=== PATIENT | male | born 1960 | race African-American/Black ===

== ENCOUNTER 2019-01-14 09:16 | Emergency (ER) | payer OTHER ==
[2019-01-14 09:23] VITALS: BP 147/110; PULSE 74; TEMP 98.8; BMI 30.5
--- NOTE | 2019-01-14 10:17 | PDOC ---
History of Present Illness - General Chief Complaint: Chronic pain Stated Complaint: LT LEG PAIN Time Seen by Provider: 01/14/19 09:59 History Source: Patient Exam Limitations: No Limitations - History of Present Illness Initial Comments: 01/14/19 10:27 PT is a 58 y/o M with PMH of diabetes, who presents to the ED with R knee pain for two weeks. Pt also reports R calf swelling. He states his leg gave out two weeks ago. Denies weakness to the extremity, numbness and tingling and fever. Past History - Travel Traveled outside of the country in the last 30 days: No Close contact w/someone who was outside of country & ill: No - Past Medical History Allergies/Adverse Reactions: Allergies Allergy/AdvReac Type Severity Reaction Status Date / Time No Known Allergies Allergy Verified 01/14/19 09:21 Home Medications: Ambulatory Orders Atorvastatin Ca [Lipitor -] 40 mg PO HS 05/29/15 Insulin Aspart [Novolog Flexpen] 20 unit SQ BID 05/29/15 Insulin Glargine,Hum.rec.anlog [Lantus Solostar PEN -] 30 units SQ HS 05/29/15 Aspirin [ASA -] 81 mg PO DAILY #30 tab.chew 05/31/15 Atorvastatin Ca [Lipitor] 40 mg PO HS #30 tablet 05/31/15 Liraglutide [Victoza -] 1.2 mg SQ BID #1 pen.injctr 05/31/15 Lisinopril [Prinivil] 40 mg PO DAILY #30 tablet 05/31/15 Metoprolol Succinate [Toprol XL -] 25 mg PO DAILY #30 tab.sr.24h 05/31/15 COPD: No Diabetes: Yes HTN: Yes Hypercholesterolemia: Yes - Surgical History Orthopedic Surgery: Yes (KNEE X2) - Immunization History Immunization Up to Date: Yes - Suicide/Smoking/Psychosocial Hx Smoking History: Never smoked Have you smoked in the past 12 months: No Hx Alcohol Use: No Drug/Substance Use Hx: No Substance Use Type: None Hx Substance Use Treatment: No Review of Systems - Review of Systems Able to Perform ROS?: Yes Comments:: 01/14/19 12:31 CONSTITUTIONAL: Absent: fever, chills, diaphoresis, generalized weakness, malaise, loss of appetite HEENT: Absent: rhinorrhea, nasal congestion, throat pain, throat swelling, difficulty swallowing, mouth swelling, ear pain, eye pain, visual Changes CARDIOVASCULAR: Absent: chest pain, loss of consciousness, palpitations, irregular heart rate, peripheral edema RESPIRATORY: Absent: cough, shortness of breath, dyspnea with exertion, orthopnea, wheezing, stridor, hemoptysis GASTROINTESTINAL: Absent: abdominal pain, abdominal distension, nausea, vomiting, diarrhea, constipation, melena, hematochezia GENITOURINARY: Absent: dysuria, frequency, urgency, hesitancy, hematuria, flank pain, genital pain MUSCULOSKELETAL: Present: R knee pain/swelling Absent: myalgia SKIN: Absent: rash, itching, pallor HEMATOLOGIC/IMMUNOLOGIC: Absent: easy bleeding, easy bruising, lymphadenopathy, frequent infections ENDOCRINE: Absent: unexplained weight gain, unexplained weight loss, heat intolerance, cold intolerance NEUROLOGIC: Absent: headache, focal weakness or paresthesias, dizziness, unsteady gait, seizure, mental status changes, bladder or bowel incontinence PSYCHIATRIC: Absent: anxiety, depression, suicidal or homicidal ideation, hallucinations. Is the patient limited [place] proficient: No *Physical Exam - Vital Signs Last Vital Signs Temp Pulse Resp BP Pulse Ox 98.8 F 74 16 147/110 H 99 01/14/19 09:21 01/14/19 09:21 01/14/19 09:21 01/14/19 09:21 01/14/19 09:21 - Physical Exam Comments: 01/14/19 18:34 GENERAL: Well developed, well nourished. Awake and alert. No acute distress. MUSCULOSKELETAL TTP of the anterior R knee. Negative knee special testing. Suprapatellar effusion noted. Normal range of motion at all joints. No bony deformities or tenderness. No CVA tenderness. EXTREMITIES: No cyanosis. No clubbing. No edema. TTP of the R calf. SKIN: Warm and dry. Normal capillary refill. No rashes. No jaundice. NEUROLOGICAL: Alert, awake, appropriate. Cranial nerves 2-12 intact. No deficits to light touch and temperature in face, upper extremities and lower extremities. No motor deficits in the in face, upper extremities and lower extremities. Normoreflexic in the upper and lower extremities. Normal speech. Toes are down- going bilaterally. Gait is normal without ataxia. PSYCHIATRIC: Cooperative. Good eye contact. Appropriate mood and affect. Moderate Sedation - Procedure Monitoring Vital Signs: Procedure Monitoring Vital Signs Temperature 98.8 F 01/14/19 09:21 Pulse Rate 74 01/14/19 09:21 Respiratory Rate 16 01/14/19 09:21 Blood Pressure 147/110 H 01/14/19 09:21 O2 Sat by Pulse Oximetry (%) 99 01/14/19 09:21 Medical Decision Making - Medical Decision Making 01/14/19 12:35 Pt is a 58 y/o M who presents to the ED with R knee pain for two weeks -TTP of the anterior R knee on exam as well as R calf tenderness -X-ray is negative for fracture. Noted supra-patellar effusion to the R knee -Duplex US of the R lower leg negative for DVT -Will give SCOTTY wrap and ortho follow up -DC home -I discussed the physical exam findings, ancillary test results and final diagnoses with the patient. I answered all of the patient's questions. The patient was satisfied with the care received and felt comfortable with the discharge plan and treatment plan. The Patient agrees to follow up with the primary care physician/specialist within 24-72 hours. Return precautions were given. *DC/Admit/Observation/Transfer Diagnosis at time of Disposition: Knee effusion, right - Discharge Dispostion Disposition: HOME Condition at time of disposition: Stable Decision to Admit order: No - Referrals Referrals: Isra Garsia MD [Staff Physician] - Brian Gomez MD [Staff Physician] - Alex Bailon DO [Staff Physician] - - Patient Instructions Printed Discharge Instructions: DI for Knee Effusion Additional Instructions: You have knee pain due to a knee effusion, or fluid around the knee. Your x-ray was negative for fractures. Your ultrasound was negative for blood clots. Please take Tylenol 650 mg every 6 hours as needed for pain. Keep the knee elevated and rest. Wear the Scotty wrap to help with swelling. Follow-up with orthopedics. A referral has been provided. Return to the ER for any new or worsening symptoms. - Post Discharge Activity
== END 2019-01-14 12:34 | disposition home or self-care (01) ==
LOC: JERFT 09:16
DX: M25.461 Effusion, right knee (principal); I10 Essential (primary) hypertension; E78.00 Pure hypercholesterolemia, unspecified; E11.9 Type 2 diabetes mellitus without complications; Z79.4 Long term (current) use of insulin
CPT/HCPCS: 73562-TC-RT-FY; 93971-TC; 99281-25